=== PATIENT | female | born 1960 | race African-American/Black ===

== ENCOUNTER → 2016-09-18 | Day surgery (SDC) | payer BC ==
[~2016-09-18] MED LIST: BREO ELLIPTA 11 EACH IH; FLUT9.9S NS; HYDR-2666 PO; HYDR12.58 PO; IRON1TAB2 PO; IV RINGERS,LACTATED 1000ML 1,000 ML IV SCH; LIDOCAINE 2% PF Vial for OR 5 ML VIAL. ONE; MELO7.5T5 PO; METH-38 PO; MOME17SP NS; MULT-208 PO; OMEP20CA9 PO; POTA10CA PO; PROPOFOL 40 ML IV ONE; norflex
[2016-09-18 13:15] LABS: NEG OBC UR NEG; POS OBC UR POS
[2016-09-18 14:30] VITALS: BP 117/72
== END | disposition home or self-care (01) ==
LOC: ENDOS 12:37
PROVIDERS: ATTEND Internal Medicine Gastroenterology
DX: K64.1 Second degree hemorrhoids (principal); K57.30 Diverticulosis of large intestine without perforation or abscess without bleeding; Z80.0 Family history of malignant neoplasm of digestive organs; I10 Essential (primary) hypertension; J45.909 Unspecified asthma, uncomplicated; K21.9 Gastro-esophageal reflux disease without esophagitis; M19.90 Unspecified osteoarthritis, unspecified site; Z98.51 Tubal ligation status; Z83.3 Family history of diabetes mellitus
CPT/HCPCS: 45378; 81025; J2704

== ENCOUNTER → 2017-02-24 | Outpatient (CLI) | payer OTHER, BC ==
[2016-09-18 14:30] VITALS: BP 117/72
[~2017-02-24] MED LIST changes: -HYDR-2666 PO; +HYDR-2758 PO; -IV RINGERS,LACTATED 1000ML 1,000 ML IV SCH; -LIDOCAINE 2% PF Vial for OR 5 ML VIAL. ONE; -POTA10CA PO; +POTASSIUM CHLO10 MEQ PO; -PROPOFOL 40 ML IV ONE
--- NOTE | 2017-02-24 11:24 | KCIC ---
MRI Cervical Spine Without Contrast History: Cervicalgia, bilateral upper extremity pain and numbness at times Technique: Multiplanar, multi sequential noncontrast MR imaging was performed of the cervical spine. Comparison: None Findings: There is motion degradation. There is mild prominence of the central canal of the cord such as at C5-C6 into the superior thoracic cord. No other defined cervical cord signal abnormality is identified, limited evaluation for more subtle signal change due to motion. Cervical vertebral body stature and AP alignment are adequate. There is very mild reversal of the lordotic curvature centered at C4-5. Intervertebral disc spaces are overall adequate. There is no significant abnormality of the cervical medullary junction. C2-C3: Spinal canal and neural foramina are adequate. C3-C4: There is very minimal posterior bulge. Spinal canal and neural foramina are adequate. C4-C5: There is negligible left paracentral protrusion. Central canal is borderline 10 mm. Neural foramina are adequate. C5-C6: Spinal canal and neural foramina are adequate. C6-C7: Spinal canal and neural foramina are adequate. C7-T1: Neural foramina and spinal canal are adequate. Impression: 1. There is no significant cervical spinal stenosis or neural foramina compromise. 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 Electronically signed by: Lewis Aguayo MD (02/24/2017 11:20 AM) [email or web address]
== END | disposition home or self-care (01) ==
LOC: KCIC MRI 09:09
PROVIDERS: ATTEND Family Medicine
DX: M54.2 Cervicalgia (principal); M79.601 Pain in right arm; M79.602 Pain in left arm; Q06.4 Hydromyelia
CPT/HCPCS: 72141

== ENCOUNTER → 2018-03-29 | Outpatient (CLI) | payer OTHER, BC ==
[2016-09-18 14:30] VITALS: BP 117/72
[~2018-03-29] MED LIST changes: +POTA10TA12 PO; -POTASSIUM CHLO10 MEQ PO
--- NOTE | 2018-03-29 15:36 | KCIC ---
MRI of the cervical spine without contrast 03/29/2018 CLINICAL HISTORY: Neck pain with right and left arm numbness. TECHNIQUE: Unenhanced T1-weighted, T2-weighted and inversion recovery sagittal and gradient echo and T2-weighted axial images of the cervical spine were obtained. FINDINGS: Comparison study is dated 02/24/2017. Mild lateral curvature of the cervical spine is seen convex to the left. There is straightening of the normal cervical lordosis. Degenerative signal changes are seen involving the C3-4, C4-5 and C5-6 discs. The marrow signal of the visualized bony structures is within normal limits. Slight prominence of the central spinal canal is seen involving the inferior cervical/superior thoracic spine, unchanged. No area of significant abnormal signal intensity is seen involving the cervical spinal cord. On the axial images throughout the cervical spine mild degenerative changes are seen which consist of minimal to mild generalized disc bulges and degenerative changes involving the uncovertebral and facet joints. These findings do not result in significant central spinal canal or neural foraminal stenosis at any level. Since the previous examination there has been no significant change. IMPRESSION: Relatively mild degenerative changes are seen involving the cervical spine as outlined above. These findings do not result in significant central spinal canal or neural foraminal stenosis at any level. Electronically signed by: Jeffry Whelan MD (03/29/2018 3:32 PM) [email or web address]
--- NOTE | 2018-03-29 15:41 | KCIC ---
MRI of the thoracic spine without contrast 03/29/2018 CLINICAL HISTORY: Mid back pain for 6 months. Left arm numbness. TECHNIQUE: Unenhanced T1-weighted, T2-weighted and inversion recovery sagittal and T1-weighted and T2-weighted axial images of the thoracic spine were obtained. T2-weighted sagittal images of the cervical, thoracic and lumbar spine were obtained for localization purposes. FINDINGS: Minimal S-shaped curvature of the thoracolumbar spine is seen. There is slight accentuation of the normal thoracic kyphosis. Degenerative signal changes and loss of height are seen involving the thoracic discs. Degenerative signal changes are seen within the marrow surrounding these discs. The thoracic spinal cord is normal morphology, position, and signal characteristics. Degenerative changes consisting of minimal generalized disc bulges and degenerative changes involving the facet joints are seen involving the mid and lower thoracic disc spaces. These findings do not result in areas of significant central spinal canal or neural foraminal stenosis. IMPRESSION: Relatively mild degenerative changes are seen involving the thoracic spine as outlined above. These findings do not result in significant central spinal canal or neural foraminal stenosis at any level. Electronically signed by: Jeffry Whelan MD (03/29/2018 3:37 PM) [email or web address]
== END | disposition home or self-care (01) ==
LOC: KCIC MRI 13:04
PROVIDERS: ATTEND Nurse Practitioner Family
DX: M47.892 Other spondylosis, cervical region (principal); J45.909 Unspecified asthma, uncomplicated; K21.9 Gastro-esophageal reflux disease without esophagitis; M19.90 Unspecified osteoarthritis, unspecified site; Z80.0 Family history of malignant neoplasm of digestive organs; Z83.3 Family history of diabetes mellitus
CPT/HCPCS: 72141; 72146

== ENCOUNTER → 2020-12-25 | Outpatient (CLI) | payer BC ==
[2016-09-18 14:30] VITALS: BP 117/72
[~2020-12-25] MED LIST changes: -HYDR-2758 PO; +HYDR-2761 PO; +OMEP20CA16 PO; -OMEP20CA9 PO
--- NOTE | 2020-12-25 13:43 | RAD ---
INDICATION : Reason: EPIGASTRIC PAIN NAUSEA / Spl. Instructions: / History: COMPARISON: None TECHNIQUE: Multiple ultrasound images obtained through the abdomen in grayscale and color. FINDINGS: Liver: Echogenic Gallbladder: Distended at time of exam measuring up to about 8 cm IVC: Partially distended at level of liver. Common Bile Duct: Not dilated. Pancreas: Partially visualized without adjacent fluid collection Right Kidney: No hydronephrosis. IMPRESSION: * Gallbladder is distended without definite gallstones or common bile duct dilation. * Liver is echogenic. Nonspecific but can be seen with fatty infiltration. Electronically signed by: Michael Garcia MD (12/25/2020 10:00 AM) [id number]
--- NOTE | 2020-12-25 13:44 | RAD ---
EXAM: HEPATOBILIARY SCINTIGRAPHY WITH GALLBLADDER EJECTION FRACTION CALCULATION. HISTORY: Abdominal pain/nausea. TECHNIQUE: 5.5 mCi technetium-99m Choletec were administered intravenously and scintigraphic images o f the abdomen obtained. After filling of the gallbladder, ensure was administered orally and the gall bladder ejection fraction calculated. FINDINGS: There is prompt hepatic clearance of tracer from the blood pool. There is homogeneous distr ibution throughout the liver. There is normal filling of the gallbladder and clearance into the bilia ry tree and small bowel. The gallbladder ejection fraction is 22% (normal >35%). IMPRESSION: 1. Decreased gallbladder ejection fraction suggesting biliary dyskinesia. Electronically signed by: Danii Weir MD (12/25/2020 12:43 PM) [id number]
== END ==
LOC: US 09:28
PROVIDERS: ATTEND Internal Medicine Gastroenterology
DX: K76.0 Fatty (change of) liver, not elsewhere classified (principal); K82.8 Other specified diseases of gallbladder; R10.13 Epigastric pain; R11.0 Nausea
CPT/HCPCS: 76705; 78227; A9537